=== PATIENT | male | born 1950 | race Caucasian/White ===

== ENCOUNTER 2024-12-29 10:15 | Emergency (ER) | payer MEDICARE, OTHER, SELFPAY ==
[2024-12-29 10:19] VITALS: BP 153/88
--- NOTE | 2024-12-29 11:37 | ED.MUSCINJ ---
HPI-Injury
General
Chief Complaint: Musculo-Skeletal Complaint
Source: patient and spouse
Exam Limitations: none
Time Seen by Provider: 12/29/24 10:55
Nursing documentation reviewed up to this point in time: agreed with
History of Present Illness-Injury
Initial Injury comments:
74-year-old male with history of left lower back pain and left sciatica who is followed by [facility] and has had a total of 3 injections into the area and scheduled for 1 this coming week presents stating he is here because he has had
this left sciatic pain chronically and after doing some gardening yesterday he woke up this morning with severe pain to the point that he could not walk.
He denies loss of bowel or bladder control, has been doing both normally. No saddle numbness, is able to ambulate. Denies fever. Not anticoagulated.
Patient medication: Amlodipine 5 mg, aspirin 325 mg, clonazepam 0.5 mg, cyclobenzaprine 10 mg, diclofenac 1% topical gel, gabapentin 100 mg twice daily, lisinopril 5 mg,
Past History
Past History
ED Past Medical History: HTN, Hypercholesterolemia and Other ( left sciatica)
Review of Systems
Review of Systems
Allergies reviewed?: Yes
All Other Systems: ROS reviewed and negative except as documented in HPI and ROS
Constitutional: Denies fever
Respiratory: Denies trouble breathing
Cardiac: Denies chest pain
ABD/GI: Denies abdominal pain, nausea, diarrhea or constipated
: Reports difficulty voiding (At times, chronic due to prostate); Denies dysuria, frequency, incontinence or urgency
Musculoskeletal: Reports back pain (Left lower back, buttock pain radiating down anterior lateral thigh to lateral calf)
Skin: Reports no symptoms
Neurological: Reports numbness (Sensation in left lateral calf is mildly diminished); Denies weakness
Phy Exam
Physical Exam
Physical Exam:
GENERAL: No acute distress. A&Ox3.
CONSTITUTIONAL: Afebrile.
EYES: clear, conjunctivae normal
ENMT: moist mucus membranes
RESPIRATORY: Regular respirations, nonlabored, lungs clear.
CARDIOVASCULAR: Regular rate and rhythm, no murmurs, no rubs.
GI: Soft, nontender, normal BS
MUSCULOSKELETAL: Tender to palpate lower back just above the mid left buttock, negative RSL, pain elicited with left straight leg raise and can only raise it to 45 degrees. Moves with ease. Well perfused.
SKIN: Warm, dry, pink
PSYCH: Normal mood and affect. Well kept, interactive and appropriate
NEUROLOGIC: Awake, alert and oriented. Plantarflexion equal bilaterally, left dorsi flexion mildly weaker on left. Equal patellar reflexes 1/4. No focal neurological deficits
Injury Course
Orders/Labs/Results
Orders:
Orders
12/29/24 11:36
Dexamethasone [Decadron] 10 mg PO NOW STA
Ketorolac [Toradol] 30 mg IM NOW STA
Oxycodone/Acetaminophen [Percocet 5/325] 1 tablet PO NOW STA
MDM/Problems Addressed
Differential Diagnosis Includes:
sciatica, cauda equina
MDM/Problems Addressed:
74-year-old male with history of left lower back pain and left sciatica who is followed by [facility] and has had a total of 3 injections into the area and scheduled for 1 this coming week presents stating he is here because he has had
this left sciatic pain chronically and after doing some gardening yesterday he woke up this morning with severe pain to the point that he could not walk.
He denies loss of bowel or bladder control, has been doing both normally. No saddle numbness, is able to ambulate. Denies fever. Not anticoagulated.
He had an MRI for: 'L4-5: Mild disc bulge with mild bilateral facet hypertrophy and ligamentum flavum thickening. Mild central canal stenosis. Moderate left and mild right foraminal stenosis.
L5-S1: Mild disc bulge and bilateral facet hypertrophy. No significant central canal stenosis. Moderate right and mild to moderate foraminal stenosis.
Multilevel degenerative changes to lumbar spine'
No cauda equina
Patient will keep his appointment in 4 days for his next epidural.
He and his understand the signs of cauda equina and will return immediately if these occur
Plan: Hydrocodone No. 4 tablets, prednisone taper, Toradol IM here today along with a dose of Decadron and a Percocet.
Pt ambulated out with normal gait at discharge per SAMANTHA Zuleta
*Critical Care Note
Total Time (30-74mins, 75-104mins- exclusive of procedures): Not Applicable
ED Attending Note
-
Portions of this chart may have been created with voice recognition software.� Occasional wrong word or��sound alike� substitutions may have occurred due to the inherent limitations of voice recognition software.
Discharge Plan
Departure
Patient Disposition: Home (Routine Discharge)
Date of Disposition: 12/29/24
Time of Disposition: 11:43
Patient with high blood pressure during this ER visit?: No
Condition: Fair
Discharge Problem:
Low back pain with left-sided sciatica
Instructions: Opioids for Short-Term Treatment of Pain ED, Low back pain - ED discharge instructions, Sciatica - ED discharge instructions
Prescriptions:
New
hydrocodone-acetaminophen 5-325 mg tablet
1 tab PO BID PRN (Reason: Pain) Qty: 4 0RF
prednisone 10 mg Tablet
See Rx Instructions .ROUTE .COMPLEX Qty: 30 0RF
Rx Instructions:
Take By Mouth:
40 mg daily x3 days, 30 mg daily x3 days,
20 mg daily x3 days, 10 mg daily x3 days.
Referrals:
[facility] [Other] - Keep scheduled appt
Hiro Brenner MD [Family Provider] -
Activity Restrictions/Additional Instructions:
As we discussed, I sent a prescription to your pharmacy for [place] (Hydrocodone). Use Ibuprofen 600 mg (with food) every 6 hours for mild to moderate pain and use the [place] if needed for worse pain.
I also sent rx for Prednisone taper, start it tomorrow as you were given a dose of steroid here today.
Limit activity to minimal walking, NO gardening etc until further instructed by your orthopedic doctor
Seek medical care immediately for loss of bowel or bladder control, weakness in your legs, or saddle are numbness.
Interventions
Interventions:
*Risk Screen - Suicide Last Done: 12/29/24 10:23
*General Assessment Last Done: 12/29/24 12:10
*Neglect/Abuse Screening Last Done: 12/29/24 10:23
*ED- Fall Risk Assessment Last Done: 12/29/24 12:10
*ED COVID-19 Vaccine History Last Done: 12/29/24 12:10
*Nursing Disposition Last Done: 12/29/24 12:10
ED-Musculoskeletal Assessment Last Done: 12/29/24 12:10
Discharge Date and Time
Discharge Date/Time: 12/29/24 12:10
Print Language: [id number]
[2024-12-29] MEDS: DECADRON 10 MG PO (11:54)
[2024-12-29] MEDS: TORADOL 30 MG IM (11:54)
[2024-12-29] MEDS: PERCOCET 5/325 1 TABLET PO (11:54)
== END 2024-12-29 12:10 | disposition home or self-care (01) ==
LOC: EMR 10:15
PROVIDERS: EMERGENCY PHYSICIAN Emergency Medicine; FAMILY PHYSICIAN Family Medicine
DX: M54.42 Lumbago with sciatica, left side (principal); E78.00 Pure hypercholesterolemia, unspecified; I10 Essential (primary) hypertension; Z79.899 Other long term (current) drug therapy; M47.816 Spondylosis without myelopathy or radiculopathy, lumbar region
CPT/HCPCS: 96372; 99284